=== PATIENT | male | born 1955 | race Caucasian/White ===

== ENCOUNTER 2020-03-18 23:06 | Emergency (ER) | payer BC ==
--- NOTE | 2020-03-18 23:05 | ED Physician Documentation ---
PD HPI ABD PAIN - Stated complaint Stated Complaint: ABD PAIN - History obtained from History obtained from: Patient, EMS - History of Present Illness Timing - onset: Today (this evening) Timing - details: Abrupt onset Pain level max: 10 Pain level now: 5 Quality: Pain Location: All over / everywhere (predominantly RUQ and periumbilical) Improved by: Meds (zofran, phenergan, and IV fluids given en route) Worsened by: Other (no exacerbating factors) Associated symptoms: Nausea, Diarrhea, Hematochezia. No: Fever, Vomiting, Constipation Similar symptoms before: Has not had sx before Recently seen: Not recently seen - Additional information Additional information: BIBA after [employer] got to the patient while he was on a boat. Patient says he had small amounts of bright red blood in his stool since yesterday, which has been loose/diarrheal, but this evening, he developed severe abdominal pain shortly after eating (cracker with some caviar) while on a boat. The pain was 10/10 but within 30 minutes reduced to 5/10. [employer] and EMS administered total of 2 liters NS, zofran 8mg , phenergan 12.5 mg with improvement in symptoms en route. denies fever, denies h/o similar symptoms Review of Systems Constitutional: reports: Sweats. denies: Fever, Chills Cardiac: reports: Reviewed and negative Respiratory: reports: Reviewed and negative GI: reports: Abdominal Pain, Nausea, Diarrhea, Bloody / black stool. denies: Abdominal Swelling, Vomiting, Constipation, Hematemesis : denies: Dysuria, Frequency Skin: denies: Rash PD PAST MEDICAL HISTORY - Past Medical History Past Medical History: No - Present Medications Home Medications: Ambulatory Orders Medication Instructions Recorded Confirmed Azithromycin [Zithromax] 500 mg PO DAILY 2 Days #4 tablet 03/19/20 oxyCODONE [Roxicodone] 5 mg PO Q4-6H PRN #14 tablet 03/19/20 - Allergies Allergies/Adverse Reactions: Allergies Allergy/AdvReac Type Severity Reaction Status Date / Time No Known Drug Allergies Allergy Verified 03/18/20 23:16 - Living Situation Living Arrangement: reports: At home - Social History Does the pt smoke?: No PD ED PE NORMAL - Vitals Vital signs reviewed: Yes - General General: Alert and oriented X 3, No acute distress, Well developed/nourished - HEENT HEENT: Moist mucous membranes - Neck Neck: Supple, no meningeal sign - Cardiac Cardiac: RRR, No murmur, No gallop, No rub - Respiratory Respiratory: No respiratory distress, Clear bilaterally - Abdomen Abdomen: Soft, Non distended, Other (mild TTP RUQ and periumbilical without rebound or guarding) - Back Back: No CVA TTP - Derm Derm: Normal color, Warm and dry Results - Vitals Vitals: Vital Signs - 24 hr 03/19/20 03/19/20 03/19/20 00:29 01:34 02:20 Heart Rate 72 71 Respiratory 16 15 17 Rate Blood Pressure 117/76 112/76 O2 Saturation 96 95 03/19/20 03/19/20 03/19/20 02:58 03:47 04:34 Heart Rate 81 83 Respiratory 16 15 16 Rate Blood Pressure 132/80 H 139/94 H O2 Saturation 94 03/19/20 03/19/20 04:35 04:55 Heart Rate 82 Respiratory 16 17 Rate Blood Pressure 116/70 O2 Saturation 95 Oxygen O2 Source Room air - Labs Labs: Laboratory Tests 03/18/20 03/18/20 03/19/20 23:15 23:15 00:15 WBC 16.8 H RBC 5.83 Hgb 17.6 Hct 53.5 H MCV 91.8 MCH 30.2 MCHC 32.9 RDW 13.1 Plt Count 250 MPV 11.5 H Neut # (Auto) 14.5 H Lymph # (Auto) 1.1 L Henry # (Auto) 0.9 Eos # (Auto) 0.1 Baso # (Auto) 0.0 Absolute Nucleated RBC 0.00 Nucleated RBC % 0.0 Sodium 138 Potassium 4.2 Chloride 107 Carbon Dioxide 19 L Anion Gap 12.0 BUN 19 Creatinine 0.9 Estimated GFR (MDRD) 85 L Glucose 146 H Calcium 8.9 Total Bilirubin 0.9 AST 25 ALT 38 Alkaline Phosphatase 42 Total Protein 6.8 Albumin 4.3 Globulin 2.5 Albumin/Globulin Ratio 1.7 Lipase 26 Urine Color YELLOW Urine Clarity CLEAR Urine pH 5.5 Ur Specific [place] 1.025 Urine Protein NEGATIVE Urine Glucose (UA) NEGATIVE Urine Ketones NEGATIVE Urine Occult Blood NEGATIVE Urine Nitrite NEGATIVE Urine Bilirubin NEGATIVE Urine Urobilinogen 0.2 (NORMAL) Ur Leukocyte Esterase NEGATIVE Ur Microscopic Review NOT INDICATED Urine Culture Comments NOT INDICATED - Rads (name of study) CT A/P with IV contrast Radiology: Prelim report reviewed, See rad report RUQ US Radiology: Prelim report reviewed, See rad report PD MEDICAL DECISION MAKING - ED course Complexity details: reviewed results, re-evaluated patient, considered differential, d/w patient ED course: patient is in NAD during ED stay and on reevaluation, he says his symptoms have improved after 4mg IV morphine. He did not have any nausea during ED stay (after zofran and phenergan in field) nor did he have any more episodes of stool (thus not able to provide a sample). Results of CT reviewed with patient , which indicate nonspecific enteritis as well as evidence of small amount of ascites and nodular/fatty liver. I advised him to return if worse, f/u with PMD even if feeling well (next available appointment). Given zithromax 500mg with rx for 2 more days for possible bacterial enteritis. No recent antibiotic exposure to suggest c.difficile Departure - Departure Disposition: 01 Home, Self Care Clinical Impression: Enteritis Condition: Good Instructions: ED Food Poison Or Gastroenteritis Prescriptions: oxyCODONE [Roxicodone] 5 mg PO Q4-6H PRN #14 tablet PRN Reason: Abdominal Pain Azithromycin [Zithromax] 500 mg PO DAILY 2 Days #4 tablet Comments: As we discussed, you have some findings on the ultrasound and CT scan that could indicate a problem with your liver such as cirrhosis; this diagnosis cannot be made simply based on theses studies and thus you need to follow up with your doctor to discuss further tests. Discharge Date/Time: 03/19/20 05:20
[2020-03-18 23:39] LABS: BASOPHILS % (AUTO) 0.2 %; EOSINOPHILS # (AUTO) 0.1 10^3/uL (0.0-0.7); EOSINOPHILS % (AUTO) 0.7 %; HGB - HEMOGLOBIN 17.6 g/dL (14.0-18.0); LYMPHOCYTES # (AUTO) 1.1 10^3/uL (1.5-3.5); LYMPHOCYTES % (AUTO) 6.6 %; MEAN CORPUSCULAR HEMOGLOBIN 30.2 pg (27.0-31.0); MEAN CORPUSCULAR HGB CONC 32.9 g/dL (32.0-36.0); MEAN CORPUSCULAR VOLUME 91.8 fL (80.0-94.0); MEAN PLATELET VOLUME 11.5 fL (7.4-11.4); MONOCYTES # (AUTO) 0.9 10^3/uL (0.0-1.0); MONOCYTES % (AUTO) 5.4 %; NEUTROPHILS # (AUTO) 14.5 10^3/uL (1.5-6.6); NEUTROPHILS % (AUTO) 86.4 %; PLT - PLATELET COUNT 250 10^3/uL (130-450); RED BLOOD COUNT 5.83 10^6/uL (4.70-6.10); RED CELL DISTRIBUTION WIDTH 13.1 % (12.0-15.0); WHITE BLOOD COUNT 16.8 x10^3/uL (4.8-10.8)
[2020-03-18 23:45] LABS: ALBUMIN 4.3 g/dL (3.2-5.5); ALBUMIN/GLOBULIN RATIO 1.7 (1.0-2.2); BILIRUBIN,TOTAL 0.9 mg/dL (0.2-1.0); CALCIUM 8.9 mg/dL (8.5-10.3); CREATININE 0.9 mg/dL (0.6-1.2); TOTAL PROTEIN 6.8 g/dL (6.7-8.2)
[2020-03-18] MEDS ORDERED: IOVERSOL 320 100 ML VIAL IVP ONE (23:46)
[2020-03-19] MEDS ORDERED: IOVERSOL 320 100 ML VIAL IVP ONE (00:27)
[2020-03-19 00:30] LABS: BILIRUBIN,URINE NEGATIVE (NEGATIVE); GLUCOSE, URINE (UA) NEGATIVE (NEGATIVE); KETONES,URINE (UA) NEGATIVE (NEGATIVE); LEUKOCYTE ESTERASE, URINE NEGATIVE (NEGATIVE); NITRITE,URINE NEGATIVE (NEGATIVE); OCCULT BLOOD,URINE NEGATIVE (NEGATIVE); PH,URINE 5.5 PH (5.0-7.5); PROTEIN,URINE NEGATIVE (NEGATIVE); UROBILINOGEN,URINE 0.2 (NORMAL) E.U./dL (NORMAL)
[2020-03-19 00:31] LABS: CLARITY,URINE CLEAR (CLEAR)
[2020-03-19] MEDS ORDERED: MORPHINE 10 MG/ML VIAL IVP STA (02:38)
[2020-03-19] MEDS ORDERED: AZITHROMYCIN 250 MG TABLET PO STA (04:56)
[2020-03-19 05:03] VITALS: BP 116/70
--- NOTE | 2020-03-19 08:08 | Ultrasound Report ---
PROCEDURE: Abdomen Limited INDICATIONS: RUQ pain, tenderness TECHNIQUE: Real-time focused scanning was performed of the abdomen, with image documentation. COMPARISON: None FINDINGS: Liver is mildly enlarged at 20.8 cm. Liver has diffusely increased echotexture. Liver has slightly no dular contours concerning for hepatic cirrhosis. Perihepatic ascites. No gallstones. No gallbladder wall thickening with gallbladder wall measuring 2.5 mm. Small amount pe richolecystic fluid noted which is likely related to ascites. No sonographic Oliver sign reported. Biliary tree is nondilated. Common bile duct measures 2.7 mm. Pancreas obscured by bowel gas and cannot be evaluated. Right kidney is sonographically normal. IMPRESSION: 1. No sonographic evidence of lithiasis or cholecystitis. If there is continued clinical concern for cholecystitis, a nuclear medicine HIDA scan should be considered for further evaluation. 2. Hepatomegaly with probable hepatic cirrhosis. Recommend correlation with clinical and laboratory d kam. 3. Ascites. Reviewed by: Irais Danielle MD, PhD on 03/19/2020 8:06 AM PST Approved by: Irais Danielle MD, PhD on 03/19/2020 8:06 AM PST Station ID: [id number]
--- NOTE | 2020-03-19 08:28 | CT Report ---
PROCEDURE: Abdomen/Pelvis W INDICATIONS: abd. pain, tenderness CONTRAST: IV CONTRAST: Optiray 320 ml: 100 PO CONTRAST: *NO PO CONTRAST TECHNIQUE: After the administration of intravenous contrast, 5 mm thick sections acquired from the diaphragms to the symphysis. 5 mm thick coronal and sagittal reformats were acquired. For radiation dose reducti on, the following was used: automated exposure control, adjustment of mA and/or kV according to craig ent size. COMPARISON: None. FINDINGS: Image quality: Excellent. ABDOMEN: Lung bases: Lung bases are clear. Heart size is normal. Solid organs: Liver and spleen are normal in size and enhancement. Gallbladder is unremarkable. Bi liary system is non dilated. Pancreas enhances normally. No adrenal nodules. Kidneys demonstrate n ormal size and enhancement, without hydronephrosis. Peritoneum and bowel: Diffuse thickening of the entirety of the small bowel without dilated loops. As sociated inflammatory change in the mesentery. Mild associated ascites. Colon is decompressed and hunter s not appear inflamed. There is colonic diverticulosis without evidence of diverticulitis. There is a normal appendix identified. Nodes and vessels: No retroperitoneal or mesenteric adenopathy by size criteria. Aorta and inferior vena cava are normal in size. No proximal SMA embolus identified. Miscellaneous: No ventral hernias. PELVIS: Genitourinary: Bladder wall thickness is normal. Prostate is enlarged. Miscellaneous: No inguinal hernias or adenopathy. Bones: No suspicious bony lesions. No vertebral body compression fractures. Metal artifact from to maria victoria left hip arthroplasty. IMPRESSION: 1. Diffuse small bowel enteritis. Marked thickening of the small bowel with associated mesenteric augusto ma and mild abdominal ascites. A preliminary report with the above findings was provided at the time of the study by [facility]. Reviewed by: Norbert De La Cruz MD on 03/19/2020 8:27 AM PST Approved by: Norbert De La Cruz MD on 03/19/2020 8:27 AM PST Station ID: [id number]
== END 2020-03-19 05:20 | disposition home or self-care (01) ==
LOC: ED 23:06
DX: K52.9 Noninfective gastroenteritis and colitis, unspecified (principal); R18.8 Other ascites; K76.0 Fatty (change of) liver, not elsewhere classified
CPT/HCPCS: 36415; 74177; 76705; 80053; 81003; 83690; 85025; 96374; 99284; A9270; Q9967; 81001; 87086